=== PATIENT | male | born 1980 | race Caucasian/White ===

== ENCOUNTER 2016-07-14 14:45 | Emergency (ER) | payer OTHER ==
[~2016-07-14] VITALS: Ht 177.8 cm; Wt 140.5 kg
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
[2016-07-14 15:09] VITALS: BP 132/87; PULSE 107; RESP 19; O2SAT 98
--- NOTE | 2016-07-14 16:34 | DRSVH ---
PROCEDURE: X-RAY RIGHT ANKLE, MINIMUM THREE VIEWS ([id number]) INDICATIONS: ankle pain TECHNIQUE: 3 views of the ankle were acquired. COMPARISON: None. FINDINGS: Bones: Subtle cortical irregularity is present along the lateral malleolus. No discrete fracture visu alized. Soft tissues: There is severe lateral malleolar soft tissue swelling. IMPRESSION: Subtle cortical irregularity of the lateral malleolus suggesting nondisplaced fracture. T here is no overlying soft tissue swelling raising the suspicion for ligamentous injury. No Dictated by: Carie Patricia M.D. on 07/14/2016 at 16:31 Approved by: Carie Patricia M.D. on 07/14/2016 at 16:33
[2016-07-14] MEDS ORDERED: CYCL10TA9 PO (19:00)
[2016-07-14 19:12] VITALS: BP 147/89; PULSE 78; RESP 18; O2SAT 99
== END 2016-07-14 19:00 | disposition home or self-care (01) ==
LOC: SED 14:45
DX: S82.64XA Nondisplaced fracture of lateral malleolus of right fibula, initial encounter for closed fracture (principal); V44.6XXA Car passenger injured in collision with heavy transport vehicle or bus in traffic accident, initial encounter; Y93.89 Activity, other specified; Y92.410 Unspecified street and highway as the place of occurrence of the external cause; Y99.8 Other external cause status; M54.6 Pain in thoracic spine; R07.9 Chest pain, unspecified; I10 Essential (primary) hypertension; E11.9 Type 2 diabetes mellitus without complications; F17.200 Nicotine dependence, unspecified, uncomplicated; Z88.0 Allergy status to penicillin; Z88.1 Allergy status to other antibiotic agents; Z88.5 Allergy status to narcotic agent

== ENCOUNTER 2016-08-01 18:50 | Emergency (ER) | payer OTHER ==
[~2016-08-01] VITALS: Ht 180.3 cm; Wt 138.6 kg
[~2016-08-01 18:50] MED LIST: CYCL10TA9 PO
[2016-08-01 18:53] VITALS: BP 151/94; RESP 20; O2SAT 99
--- NOTE | 2016-08-01 19:21 | ED.REPORT ---
HPI-Sore Throat ONLY HPI/PE done Aug 01, 2016 ED Provider: Dr. Chele Haq 36 year old male with a history of DMII, HTN and current smoker who presents to the ER due to a sore throat for 3 days. Pt has pain with speaking and has a mild cough. Pt denies fever and SOB. Pt is able to swallow secretions. Nursing Notes Stated Complaint: THROAT IS PAINFUL & SWOLLEN Chief Complaint: ENT & Mouth Nursing Notes Reviewed: Yes Allergies: Coded Allergies: Penicillins (Verified Allergy, Intermediate, rash, 08/01/16) codeine (Verified Allergy, Intermediate, rash, 08/01/16) amoxicillin (Verified Allergy, Unknown, 08/01/16) Scheduled PRN Cyclobenzaprine (Cyclobenzaprine) 10 Mg Tablet 10 MG PO TID PRN PRN Spasm General Time Seen by MD: 19:20 Chief Complaint Sore throat Hx Obtained From: Patient Arrived By: Walk-in Onset Occurred: 3 days ago Symptom Duration: Since onset Location: : Soft palate Quality: Painful Severity: Current: Moderate Associated with: Denies: Fever, Shortness of breath Pertinent Negative: Relieved by nothing Past Medical History Past Medical History Notes: PCP: Hugo Carmen MD Past Medical History Reports: Diabetes mellitus, Hypertension Past Surgical History denies Family History non-contributory Smoking History Current Every Day Smoker Social History Alcohol Use: Denies alcohol use Drug Use: Denies drug use Other Social History: Good social support, Local resident Ambulatory Status Independent Review of Systems Basic Review of Systems Eyes: Vision NL, No discharge Cardiovascular: No chest pain, No dyspnea on exertion, No orthopnea, No parox noct dyspnea, No palpitations Psychiatric: Normal thought content Constitutional: Denies: Fever Ears / Nose / Throat: Reports: Sore throat Respiratory: Reports: Non-productive cough, Denies: Shortness of breath Complete sys rev & neg: except as marked. Physical Exam Initial Vital Signs Vital Signs (First) Date Time Temp Pulse Resp B/P Pulse Ox O2 Delivery O2 Flow Rate FiO2 08/01/16 18:53 37.2 107 20 151/94 99 Room Air Initial VS: Reviewed Head / Eyes: Atraumatic, Normocephalic, PERRL Respiratory: Breath sounds normal, Clear to auscultation, No respiratory distress Cardiovascular: Regular rate & rhythm, Heart sounds normal, Intact distal pulses Skin: Warm, Dry, No cyanosis Neurologic: Alert, Oriented Psychiatric: Behavior normal, Normal thought content General/Constitutional: Awake, Alert ENT: Mucous membranes moist Moderate soft palate swelling with cellulitis. No evidence of abscess. Neck: Atraumatic, Full range of motion Interpretation & Diagnostics Lab Results Interpretation Test 08/01/16 19:30 08/01/16 19:50 Hold Chou Top Tube Received (Received) Hold Purple Top Tube Received (Received) Hold Blue Top Tube Received (Received) Hold Red Top Tube Received (Received) Hold Pettus Top Tube Received (Received) Lab Results Interpretation: + Strep Re-Eval/Medical Decision Med Decision/Clinical Course Soft palate cellulitis without signs of an abscess. Strep positive. Due to his hives from penicillin we treated with clindamycin. Steroids and fluids were given as well. He will come back tomorrow is not much better. Otherwise he will see Teo Damico next week. Re-Evaluation/Progress : Time of Eval: 21:10 Re-Evaluation/Progress Note: Pt's pain is somewhat improved after pain meds and first dose of anibiotics. Updated pt of labs. Discussed plan for discharge and follow up. All questions addressed. Consultation : Referral / Consult Name: Teo Damico MD Consulted With: ENT Call Returned at: 21:11 [employer]: Will see in office Counseled Regarding: Diagnosis, Lab results, Need for follow-up, When/why to return to ED Discharge & Departure Primary Impression: Tonsillitis Disposition: Home Discharge Condition All VS Reviewed: Yes Condition: Improved Patient Instructions: Tonsillitis (ED) Additional Instructions: Please take Clindamycin 3 times daily for 10 days. If you have any diarrhea while you are taking the antibiotic, you need to stop taking it immediately and have your stool tested for c. Diff. Prednisone daily for 3 days. For pain you can take 1 Percocet every 6 hours as needed. Do not drink alcohol, drive or use acetaminophen while taking this medication. Call the ENT office on Thursday morning to schedule a follow up next week. If you are not significantly batter tomorrow, return to the ER for a recheck after 6pm. Referrals: Hugo Carmen MD (PCP) Teo Damico MD Scribe Attestation Portions of this note were transcribed by Yudi Mcqueen. I, (Dr. Haq) personally performed the history, physical exam and medical decision-making; I reviewed and confirmed the accuracy of the information in the transcribed note. Signed by: Yudi Mcqueen. Ashleigh, 08/01/2016, 2109 copies to: Teo Damico MD; Hugo Carmen MD, Todd P DO Aug 01, 2016 19:21 Yudi Mcqueen Aug 01, 2016 19:46
[2016-08-01] MEDS ORDERED: 0.9% Sodium Chloride 1,000 ML IV ONE (19:45)
[2016-08-01] MEDS ORDERED: DEXAMETHASONE IV ONE (19:45)
[2016-08-01] MEDS ORDERED: SODIUM CHLORIDE PHA MIX 0.9% IV ONE (19:45)
[2016-08-01] MEDS ORDERED: Clindamycin Inj 900 MG in IV Premix 1 EACH IV ONE (19:45)
[2016-08-01] MEDS ORDERED: _Ondansetron ODT 4 mg Tablet PO PRN (21:15)
[2016-08-01] MEDS ORDERED: _oxyCODONE/APAP 5-325 mg Tablet PO PRN (21:15)
== END 2016-08-01 21:54 | disposition home or self-care (01) ==
LOC: SED 18:50
DX: J03.90 Acute tonsillitis, unspecified (principal); E11.9 Type 2 diabetes mellitus without complications; I10 Essential (primary) hypertension; F17.200 Nicotine dependence, unspecified, uncomplicated; Z88.0 Allergy status to penicillin; Z88.5 Allergy status to narcotic agent; Z88.1 Allergy status to other antibiotic agents
CPT/HCPCS: 87880; 96361; 96365; 96375; 99284; J1100; J7030

== ENCOUNTER 2017-01-11 21:12 | Emergency (ER) | payer OTHER ==
[~2017-01-11] VITALS: Ht 180.3 cm; Wt 150.0 kg
[2017-01-11 21:26] VITALS: BP 141/95; RESP 16; O2SAT 98
--- NOTE | 2017-01-11 22:07 | ED.REPORT ---
HPI-Dental/Mouth Prob Date of Service Jan 11, 2017 ED Provider: Rich Decker MD Pt is a 36 year old male with a history of DM and dental caries who presents to the ED complaining of swelling on the roof of his mouth onset yesterday. He c/o associated constant mouth pain and odynophagia secondary to the pain. He rates that pain as a 5/10. Pt reports that he is supposed to treat his DM with metformin, but he currently does not secondary to the expense. Nursing Notes Stated Complaint: SWELLING AND PAIN IN MOUTH Chief Complaint: ENT & Mouth Nursing Notes Reviewed: Yes Allergies: Coded Allergies: Penicillins (Verified Allergy, Intermediate, rash, 01/11/17) codeine (Verified Allergy, Intermediate, rash, 01/11/17) amoxicillin (Verified Allergy, Unknown, 01/11/17) Scheduled PRN Cyclobenzaprine (Cyclobenzaprine) 10 Mg Tablet 10 MG PO TID PRN PRN Spasm General Time Seen by MD: 22:04 Chief Complaint Other (Mouth roof swelling) Hx Obtained From: Patient Arrived By: Walk-in Onset Occurred: Yesterday Symptom Duration: Since onset Quality: Painful Radiation: : Does not radiate Severity: Current: Moderate Severity: Maximum: Moderate Recent Healthcare: No recent doctor visit, No recent hospitalization Similar Sx Previous: No Past Medical History Past Medical History Notes: PCP: Hugo Carmen MD Past Medical History Reports: Diabetes mellitus (supposed to take metformin, but currently does not secondary to the expense), Hypertension Past Surgical History denies Family History non-contributory Smoking History Current Every Day Smoker (1/2 pack per day) Social History Former THC user Alcohol Use: Denies alcohol use Drug Use: Denies drug use Other Social History: Good social support, Local resident Ambulatory Status Independent Review of Systems + Mouth roof swelling + Odynophagia Constitutional: Denies: Fever Ears / Nose / Throat: Reports: Mouth pain Respiratory: Denies: Non-productive cough, Shortness of breath Complete sys rev & neg: except as marked. Physical Exam Initial Vital Signs Vital Signs (First) Date Time Temp Pulse Resp B/P Pulse Ox O2 Delivery O2 Flow Rate FiO2 01/11/17 21:26 37.1 83 16 141/95 98 Room Air Initial VS: Reviewed, Vital signs abnormal Head / Eyes: Atraumatic, Normocephalic Respiratory: Breath sounds normal, Clear to auscultation, No respiratory distress Cardiovascular: Regular rate & rhythm, Heart sounds normal, Intact distal pulses Abdomen / GI: Soft, Non-tender Extremities: Vascular intact, Neuro intact Skin: Warm, Dry, No cyanosis Neurologic: Alert, Oriented, Nonfocal Psychiatric: Mood/affect normal, Behavior normal ENT: Airway patent, Tympanic membs NL Fairly 1x2 cm swelling of hard pallate adjacent to teeth 6 and 7. Neck: Atraumatic, Full range of motion Tender anterior cervical adenopathy. General/Constitutional: Awake, Alert Re-Eval/Medical Decision Med Decision/Clinical Course 36-year-old male with extensive tooth decay presents with a painful swelling on the roof of his mouth adjacent teeth #6 and #7. There is no evidence of more serious bacterial infection at this time. He was placed on clindamycin ( penicillin allergy). He will follow up with the dentist as soon as possible. Source of Hx: Old records Re-Evaluation/Progress : Time of Eval: 22:42 Re-Evaluation/Progress Note: Pt rechecked. Informed pt of plan for treatment and discharge. Pt understands and agrees with plan for treatment and discharge. F/U instructions and RTER warnings given. All questions addressed Counseled Regarding: Diagnosis, Need for follow-up, When/why to return to ED Discharge & Departure Primary Impression: Dental abscess Disposition: Home Discharge Condition All VS Reviewed: Yes Condition: Stable Patient Instructions: Dental Abscess (ED) Additional Instructions: Clindamycin 4 times daily, prepack dispensed. Tylenol and/or ibuprofen as needed for pain. Follow up JOÃO with a dentist for dental extractions. Referrals: Hugo Carmen MD (PCP) Scribe Attestation Portions of this note were transcribed by Yoly Espino. I, Dr. Decker personally performed the history, physical exam and medical decision-making; I reviewed and confirmed the accuracy of the information in the transcribed note. Signed by: Ashleigh Urrutia, 01/11/17. copies to: Hugo Carmen MD, Howard L MD Jan 11, 2017 22:07 Yoly Brown Jan 11, 2017 22:40
[2017-01-11 23:13] VITALS: BP 153/103; PULSE 68; RESP 16; O2SAT 96
[2017-01-12] MEDS ORDERED: _Clindamycin 150 mg Capsule PO SCH (06:30)
== END 2017-01-11 23:19 | disposition home or self-care (01) ==
LOC: SED 21:12
DX: K04.7 Periapical abscess without sinus (principal); E11.9 Type 2 diabetes mellitus without complications; I10 Essential (primary) hypertension; F17.200 Nicotine dependence, unspecified, uncomplicated; Z88.0 Allergy status to penicillin; Z88.5 Allergy status to narcotic agent; Z88.1 Allergy status to other antibiotic agents